=== PATIENT | male | born 1990 | race Caucasian/White ===

== ENCOUNTER 2017-06-24 03:47 | Emergency (ER) | payer MEDICAID ==
[~2017-06-24] VITALS: Ht 182.9 cm; Wt 54.5 kg
[~2017-06-24 03:47] MED LIST: NO HOME MEDS; ZOF4T PO
[2017-06-24] MEDS ORDERED: ondansetron/PF 4mg/2ml inj IV ONE (03:55)
[2017-06-24] MEDS ORDERED: normal saline 1000ML IV soln IVB ONE (03:55)
[2017-06-24] MEDS ORDERED: famotidine/PF 10 mg/ml inj IV ONE (03:55)
[2017-06-24] MEDS ORDERED: pantoprazole 40 MG vial IV ONE (03:55)
[2017-06-24] MEDS ORDERED: metoclopramide 5 mg/ml inj IV ONE (04:05)
[2017-06-24 04:30] LABS: BASOPHILS % (AUTO) 0 % (0-1); EOSINOPHILS # (AUTO) 0.2 X10'3 (0-0.9); EOSINOPHILS % (AUTO) 1.1 % (0-6); HEMATOCRIT 50.3 % (42.0-52.0); HEMOGLOBIN 16.8 g/dl (14.0-17.9); LYMPHOCYTES # (AUTO) 1.6 X10'3 (1.1-4.8); LYMPHOCYTES % (AUTO) 7.5 % (21-51); MEAN CORPUSCULAR HEMOGLOBIN 29.2 PG (27.0-31.0); MEAN CORPUSCULAR HGB CONC 33.4 % (33.0-36.5); MEAN CORPUSCULAR VOLUME 87.3 FL (78-98); MEAN PLATELET VOLUME 9.1 FL (7.4-10.4); MONOCYTES # (AUTO) 0.8 X10'3 (0-0.9); MONOCYTES % (AUTO) 3.9 % (2-12); NEUTROPHILS # (AUTO) 18.4 X10'3 (1.8-7.7); NEUTROPHILS % (AUTO) 87.5 % (42-75); PLATELET COUNT 256 X10'3 (140-440); RED BLOOD COUNT 5.77 X10'6 (4.70-6.10); RED CELL DISTRIBUTION WIDTH 14.2 % (11.5-14.5); WHITE BLOOD COUNT 21.1 X10'3 (4.5-11.0)
[2017-06-24 04:41] LABS: ALANINE AMINOTRANSFERASE 26 U/L (12-78); ALBUMIN 4.5 G/DL (3.4-5.0); ALBUMIN/GLOBULIN RATIO 1.1 (1.1-1.5); ALKALINE PHOSPHATASE 117 IU/L (46-116); ANION GAP 18 (8-16); ASPARTATE AMINO TRANSFERASE 25 U/L (10-37); BILIRUBIN,TOTAL 0.4 MG/DL (0.1-1.0); BLOOD UREA NITROGEN 9 MG/DL (7-18); BUN/CREATININE RATIO 9.3 (5.4-32.0); CALCIUM 9.7 MG/DL (8.5-10.1); CHLORIDE 104 MMOL/L (99-107); CREATININE 0.97 MG/DL (0.60-1.10); GLUCOSE 122 MG/DL (70-104); LIPASE 52 U/L (73-393); POTASSIUM 3.9 MMOL/L (3.5-5.1); SODIUM 143 MMOL/L (135-145); TOTAL CARBON DIOXIDE 20.8 MMOL/L (24-32); TOTAL PROTEIN 8.7 G/DL (6.4-8.2); eGFR > 90 ML/MIN
[2017-06-24 05:03] LABS: TOTAL CELLS COUNTED 100
[2017-06-24 05:04] LABS: LARGE PLATELETS MODERATE; PLATELET ESTIMATE NORMAL
[2017-06-24 05:33] LABS: CLARITY,URINE Clear (Clear); COLOR,URINE Yellow (Yellow); GLUCOSE, URINE Negative (Neg); KETONES,URINE 40 mg/dl (Neg); LEUKOCYTE ESTERASE ,URINE Negative (Neg); NITRITES, URINE Negative (Neg); OCCULT BLOOD,URINE Negative (Neg); PH,URINE 6.5 (4.8-8.0); PROTEIN,URINE Negative (Neg)
[2017-06-24 05:38] LABS: UA COLLECTION TYPE CLN CATCH MIDSTREAM
[2017-06-24 05:53] LABS: URINE AMPHETAMINE SCREEN NEGATIVE (Neg); URINE BARBITUATE SCREEN NEGATIVE (Neg); URINE BENZODIAZEPINES SCREEN NEGATIVE (Neg); URINE CANNABINOID SCREEN POSITIVE (Neg); URINE COCAINE SCREEN NEGATIVE (Neg); URINE METHADONE SCREEN NEGATIVE (Neg); URINE OPIATE SCREEN NEGATIVE (Neg); URINE PHENCYCLIDINE SCREEN NEGATIVE (Neg)
[2017-06-24] MEDS ORDERED: KETO10TA2 PO (06:11)
[2017-06-24] MEDS ORDERED: LEVO500T2 PO (06:11)
[2017-06-24] MEDS ORDERED: FLO0.4C PO (06:11)
[2017-06-24] MEDS ORDERED: HYDR-565 PO (06:11)
[2017-06-24] MEDS ORDERED: ONDA4TAB9 SL (06:11)
[2017-06-24 06:12] VITALS: BP 123/68
[2017-06-24] MEDS ORDERED: levoFLOXACIN 750MG TABLET PO ONE (06:20)
== END 2017-06-24 06:12 | disposition home or self-care (01) ==
LOC: ER 03:47
DX: N20.0 Calculus of kidney (principal); K52.9 Noninfective gastroenteritis and colitis, unspecified; F12.10 Cannabis abuse, uncomplicated
CPT/HCPCS: 36415; 74176; 80053; 80305; 81003; 83605; 83690; 84145; 85025; 87040; 96361; 96374; 96375; 99285; C9113; J2405; J2765; J3490; J7030